=== PATIENT | male | born 1945 | race Caucasian/White ===

== ENCOUNTER 2024-05-26 06:21 | Day surgery (SDC) | payer BC, MEDICAID ==
[2024-05-26] VITALS (18 sets, daily range): BP systolic 102–160; BP diastolic 47–85; PULSE 64–76; RESP 8–22; TEMP 97.7; O2SAT 94–98
[~2024-05-26] VITALS: Ht 188 cm; Wt 102.1 kg
[2024-05-26] MEDS: ceFAZolin 2gm in dextrose, iso 50 ML IV ONE (05:30)
[~2024-05-26 06:21] MED LIST: NO HOME MEDS
[2024-05-26] MEDS ORDERED: bacitracin 15gm ointment TP ONE (06:41)
[2024-05-26] MEDS ORDERED: vancomycin 1,000mg inj ONE (06:41)
[2024-05-26] MEDS ORDERED: BUPIVAcaine 2.5mg/ml inj 50ml vial (contains preservative) ONE (06:41)
[2024-05-26] MEDS: famotidine 20mg tablet PO ONE (07:19)
[2024-05-26] MEDS: ringers solution, lacted 1,000 ML IV SCH (07:20)
[2024-05-26] MEDS ORDERED: cloNIDine hcl/PF 100mcg/ml inj ONE (08:05)
[2024-05-26] MEDS ORDERED: fentaNYL/PF 50MCG/1 ML 2ML syringe ONE (08:07)
[2024-05-26] MEDS ORDERED: midazolam 1 mg/ML 2ml injection ONE (08:08)
[2024-05-26] MEDS ORDERED: ROPIVAcaine 0.5% (5mg/ml) 30ml vial ONE (08:08)
[2024-05-26] MEDS ORDERED: propofol inj 20 ML IV ONE (08:08)
[2024-05-26] MEDS ORDERED: meperidine/PF 25mg/ml syringe IV PRN ×2 (08:20)
[2024-05-26] MEDS ORDERED: ringers solution, lacted 1,000 ML IV SCH (08:20)
[2024-05-26] MEDS ORDERED: morphine 2 MG/ML inj. syringe IV PRN (08:20)
[2024-05-26] MEDS ORDERED: morphine 4 MG/ML inj SYRINge IV PRN (08:20)
[2024-05-26] MEDS ORDERED: ondansetron/PF 4mg/2ml inj IV PRN (08:20)
[2024-05-26] MEDS ORDERED: proCHLORperazine 10 MG/2 ml inj IV PRN (08:20)
[2024-05-26] MEDS ORDERED: sevoflurane 250ml liquid IH ONE (08:42)
[2024-05-26] MEDS: meperidine/PF 25mg/ml syringe IV PRN (13:16)
== END 2024-05-26 15:58 | disposition home or self-care (01) ==
LOC: PAS 06:21 → EDSTATUS 08:00 → PAS 15:58
PROVIDERS: ATTEND Podiatrist Foot & Ankle Surgery
DX: M19.071 Primary osteoarthritis, right ankle and foot (principal); M67.01 Short Achilles tendon (acquired), right ankle; M21.41 Flat foot [pes planus] (acquired), right foot; G89.18 Other acute postprocedural pain; Z87.891 Personal history of nicotine dependence; Z79.891 Long term (current) use of opiate analgesic; Z79.899 Other long term (current) drug therapy; Z98.890 Other specified postprocedural states
CPT/HCPCS: 27685; 27702; 28304; 64447; 64450; 73610; 76942; 82948; 87081; A6454; C1713; C1776; J0690; J0735; J2175; J2250; J2704; J2795; J3010; J3370; J3490; J7030; J7120; Z7506; Z7508; Z7512; 76000; A4615; A4618; A6253; A6449; A6455; A7000; C1758

== ENCOUNTER → 2024-11-23 | Day surgery (SDC) | payer BC, MEDICAID ==
[~2024-11-23] VITALS: Ht 188 cm; Wt 100.0 kg
[2024-11-23] VITALS (8 sets, daily range): BP systolic 144–180; BP diastolic 76–95; PULSE 71–79; RESP 9–16; TEMP 97.6; O2SAT 97–100
[~2024-11-23] MED LIST changes: +BUPIVACAINE liposomal/PF 13.3 MG/ML 10mL vial IM ONE; +BUPIVAcaine/PF 5 mg/ml 10ml ONE; +ROPIVAcaine 0.5% (5mg/ml) 30ml vial ONE; +acetaminophen 1,000mg/100ml IV 100 ML IV ONE; +ceFAZolin 1000mg inj ONE; +ePHEDrine 50MG/ML INJ. ONE; +fentaNYL/PF 50MCG/1 ML 2ML syringe IV PRN; +fentaNYL/PF 50MCG/1 ML 2ML syringe ONE; +hydrALAZINE 20mg/ml inj. IV PRN; +ketorolac trometh 15mg/ml vial 15 MG/ML ML IM ONE; +labetalol 5mg/ml 20ml inj. IV PRN; +midazolam 1 mg/ML 2ml injection ONE; +morphine 2 MG/ML inj. syringe IV PRN; +morphine 4 MG/ML inj SYRINge IV PRN; +mupirocin 2% ointment 22GM ONE; +ondansetron/PF 4mg/2ml inj IV PRN; +ondansetron/PF 4mg/2ml inj ONE; +sevoflurane 250ml liquid IH ONE
[2024-11-23] MEDS: ceFAZolin 2gm/dext,iso 50mL 50 ML IV ONE (05:30)
--- NOTE | 2024-11-23 10:49 | ELECTROCARDIOGRAPH REPORT ---
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 Bee Mijares Measurements Intervals [place] Rate: 65 P: 46 FL: 204 QRS: -20 QRSD: 104 T: 62 QT: 430 QTc: 448 Interpretive Statements Sinus rhythm Borderline left axis deviation Electronically Signed On 11-24-2024 6:58:[address] Bee Mijares Please click the below link to view image of tracing.
[2024-11-23] MEDS: famotidine 20mg tablet PO ONE (11:11)
[2024-11-23] MEDS: ringers solution, lacted 1,000 ML IV SCH ×2 (11:12→15:23)
--- NOTE | 2024-11-23 14:13 | ANESTHESIA RECORDS ---
Nerve Block Providers to CC CC: KATHY VALADEZ DPM ~ Diagnosis: Nerve Block requested by: KATHY VALADEZ DPM Neuraxial/Peripheral Nerve Block requested for Post-operative analgesia by Physician above DIAGNOSIS: Post-operative pain. (Body Area) Shoulder: [ ] Arm: [ ] Hand: [ ] Hip: [ ] Knee: [ ] Ankle: [ ] Foot: [ RIGHT ] Leg: [ ] Abdomen: [ ] Other: [ ] Post-operative pain expected to be/is inadequately managed by oral or IV medicines. Regional anesthetic expected to facilitate rehabilitation and/or discharge from facility. Other:[ _] Procedure Performed: Ankle Posterior tibial: Right Ankle Superficial Peroneal: Right Ankle Deep Peroneal: Right Ankle Sural & Sapenous Nerve: Right Time out Done?: Yes Time of Time out: 13:24 Procedure Details: PROCEDURE DETAILS: Risks, benefits and alternatives explained Informed consent obtained, and patient wishes to proceed Conscious sedation with indicated monitors Patient positioned, pertinent anatomy defined, sterile technique used Needle used: [ ] 3 1/8 inch Stimuplex Ultra 22ga [ ] 4 inch Stimuplex Ultra 20ga [ ] 6 inch Stimuplex Ultra 20ga [ ] 6 inch, Quikbloc over the needle catheter set 20ga [ ] 4 inch Quikbloc over the needle catheter set 20ga [X ]Other: [__22G HYPODERMIC ] Loss of twitch @ [ ]mA [X ] Single Injection [ ] Catheter Ultrasound Guidance Used: [ ] Yes [X ] No Attempts:[_1 ] Medicines injected: [ ]Clonidine Amt:[ ] [ ]Dexamethasone Amt:[ ] [ ]Ropivacaine Amt:[ ] [ X ]Bupivacaine Amt:[_0.5% 20 C.C ] [ ]Lidocaine Amt:[ ] [ X ]Exparel 1.33%:[__10 C.C ] [ ]Epinephrine Amt[ ] [ ]Other: [ ] Intermittent aspiration during local anesthetic administration No symptoms of intraneural or intravenous injection Patient tolerated procedure well Comments Right ankle bone land grigsby,ligmament positions, nerve pathways identified. Needle is placed tomas all 5 nerve bundle [address] ways. Local mix is distributed.. GINGER PEREZ MD Nov 23, 2024 14:13
--- NOTE | 2024-11-23 15:30 | OPERATIVE REPORT ---
DATE OF SURGERY: 11/23/2024 DICTATING PHYSICIAN: Mateus Vega DPM PREOPERATIVE DIAGNOSES: 1. 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 2. Complications of deep implant, right calcaneus. POSTOPERATIVE DIAGNOSES: 1. 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 2. Complications of deep implant, right calcaneus. PROCEDURES: 1. Removal of deep implant, right foot at the calcaneal level. 2. Subtalar joint fusion with revision internal fixation, right foot. 3. Bone graft harvest, right calcaneus. SURGEON: Mateus Vega DPM ANESTHESIA: General. The patient was also given an ankle block preoperatively to the right ankle. The patient was given 2 g of cefazolin IV 30 minutes prior to skin incision. ESTIMATED BLOOD LOSS: Less than 10 mL. 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 Prior treatment has consisted of different types of shoes and lifestyle changes. These conservative measures have not been successful in reducing his chief complaint of pain and disability. Therefore, surgical intervention was considered justified. The patient has also tried nonsteroidal anti-inflammatory medications. DESCRIPTION OF PROCEDURE: Tourniquet was used to 250 mmHg, which was then raised to 300 mmHg at the level of the right thigh. C-arm was used throughout the case and the procedure was as follows. The patient was escorted to the operating room suite where he was prepared and draped in the usual sterile technique. The patient was placed in a lateral decubitus position during the procedure. Tourniquet was inflated to 250 mmHg at the level of the right thigh. This was then inflated to another 50 mmHg to 300 mmHg, which seemed to accomplish the goal of hemostasis. The first procedure consisted of posterior midline incision over the posterior aspect of the heel, vertical in nature, full-thickness. Some bone was resected to visually identify the deep implant of the deep screw. The screw was extracted in total with no complications. The area was irrigated with copious amounts of sterile saline. So, after the screw was removed, a bone graft harvest was procured from the posterior aspect of the right calcaneus utilizing a bone rongeur and this bone graft consisted of primarily cancellous bone. This was mixed with DBM to form a slurry, which would then be used for the subtalar joint fusion procedure. The next procedure consisted of a separate incision over the sinus tarsi area in the posterior subtalar joint area along the lateral wall of the calcaneus. The peroneal tendons were identified visually and then retracted. Neurovascular structures were protected. The posterior subtalar joint was identified and utilizing a Hintermann distractor after freeing the interosseous ligament of the talocalcaneal joint, the Hintermann distractor was used to distract the joint. A C-arm was used throughout the case to visualize the surgical anatomy. A #4 rotary jose was used to resect the remaining articular cartilage at the arthritic posterior facet of the subtalar joint. The middle facet of the subtalar joint was also resected with the use of the use of a #4 bone jose. Then, after this was performed, multiple holes were made along the subchondral bone of the articulating surface of the subtalar joint. The area was irrigated with copious amounts of sterile saline. The DBM with the cancellous bone was then placed into the fusion site and then two 7.0 headless screws from [place] 28 were inserted from the posterior tuber of the calcaneus obliquely into the body of the talus as well as the talar neck. The C-arm confirmed appropriate alignment with rigid internal fixation and compression achieved with these 2 screws. The foot was maintained in a neutral position during the fusion process. Any bleeding vessels were bovied. Irrigation was copious with sterile saline. The tissues were closed in layers. Capillary refill time was instantaneous after release of the tourniquet. The appropriate postoperative dressings were applied and a Atlas splint was applied to the right lower extremity with the foot at 90 degrees to the leg. The patient was then escorted to PACU with the appropriate postoperative instructions. Mateus Vega DPM TID: [id number] RECEIPT: [id number] [facility]
[2024-11-23] MEDS: ibuprofen tablet 400 MG TABLET PO ONE (16:05)
[2024-11-23] MEDS: ketorolac trometh 15mg/ml vial 15 MG/ML ML IV ONE (16:05)
== END | disposition home or self-care (01) ==
LOC: PAS 09:14
PROVIDERS: ATTEND Podiatrist Foot & Ankle Surgery
DX: M19.071 Primary osteoarthritis, right ankle and foot (principal); T84.84XA Pain due to internal orthopedic prosthetic devices, implants and grafts, initial encounter; I10 Essential (primary) hypertension; Y83.8 Other surgical procedures as the cause of abnormal reaction of the patient, or of later complication, without mention of misadventure at the time of the procedure; Z79.899 Other long term (current) drug therapy; G89.18 Other acute postprocedural pain; Z87.891 Personal history of nicotine dependence
CPT/HCPCS: 20680; 20902; 28725; 64450; 73650; 82948; 93005; A6222; C1713; J0131; J0665; J0666; J0690; J1100; J1885; J2003; J2250; J2405; J2704; J2795; J3010; J3490; J7030; J7120; Z7506; Z7508; Z7512; 76000; A4215; A4618; A6253; A6446; A6449; A6455; A7000